=== PATIENT | female | born 2000 | race Hispanic/Latino ===

== ENCOUNTER 2023-09-11 15:44 | Emergency (ER) | payer BC, MEDICAID ==
[~2023-09-11] VITALS: Ht 165.1 cm; Wt 94.3 kg
[2023-09-11 17:13] LABS: BASOPHILS # (AUTO) 0.02 K/uL (0.00-0.20); BASOPHILS % (AUTO) 0.2 % (0.0-5.0); EOSINOPHILS # (AUTO) 0.01 K/uL (0.00-0.70); EOSINOPHILS % (AUTO) 0.1 % (0.0-8.0); HEMATOCRIT 35.9 % (36-48); IMMATURE GRANULOCYTE ABSOLUTE 0.05 K/uL (0-1); LYMPHOCYTES # (AUTO) 1.6 K/uL (1.0-4.8); LYMPHOCYTES % (AUTO) 13.8 % (21.0-51.0); MEAN CORPUSCULAR HEMOGLOBIN 30.3 pg (27.0-33.0); MEAN CORPUSCULAR HGB CONC 34.8 g/dL (32.0-36.0); MEAN CORPUSCULAR VOLUME 86.9 fL (79-99); MONOCYTES # (AUTO) 0.9 K/uL (0.1-1.0); MONOCYTES % (AUTO) 7.4 % (3.0-13.0); NEUTROPHILS # (AUTO) 9.1 K/uL (1.8-7.7); NEUTROPHILS % (AUTO) 78.1 % (40.0-77.0); PLATELET COUNT (AUTO) 191 K/uL (130-400); RED BLOOD CELL COUNT(AUTO) 4.13 MIL/uL (4.00-5.50); RED CELL DISTRIBUTION WIDTH 12.1 % (11.0-15.5); WHITE BLOOD COUNT (AUTO) 11.7 K/uL (4.8-10.8)
[2023-09-11 17:26] LABS: CREATININE 0.6 mg/dL (0.5-1.0); POTASSIUM 3.8 mmol/L (3.5-5.1)
[2023-09-11 17:30] LABS: ALBUMIN 3.7 g/dL (3.5-5.0); BILIRUBIN,TOTAL 0.3 mg/dL (0.2-1.0)
[2023-09-11] MEDS: CEFTRIAXONE 1G VIAL IV ONE (19:57)
[2023-09-11] MEDS: METHYLERGONOVINE MALEATE 0.2 MG/1 ML ML IM ONE (20:27)
[2023-09-11] MEDS: OXYTOCIN 10 USP UNITS/ML IV ONE ×2 (20:28→20:32)
[2023-09-11 20:48] VITALS: BP 136/84; PULSE 85; RESP 18; O2SAT 99
[2023-09-11] MEDS ORDERED: CEPH500B PO (21:00)
== END 2023-09-11 21:09 | disposition home or self-care (01) ==
LOC: EDH 15:44
DX: O03.4 Incomplete spontaneous abortion without complication (principal); O26.891 Other specified pregnancy related conditions, first trimester; R10.2 Pelvic and perineal pain
CPT/HCPCS: 99284; 96374; 76801; 96375; 80053; 84702; 85025; 36415; 96372; J0696; J2590 ×2; J2210